=== PATIENT | female | born 1985 | race American Indian/Alaskan Native ===

== ENCOUNTER 2017-06-13 16:20 | Emergency (ER) | payer MEDICAID ==
[2017-06-13 16:52] LABS: Basophils % (Auto) 0.5 % (0.0-1.8); Eosinophils # (Auto) 0.1 K/mm3 (0.0-0.4); Eosinophils % (Auto) 0.8 % (0.0-4.3); Hematocrit 44.3 % (30.3-42.9); Hemoglobin 14.8 gm/dl (10.1-14.3); Lymphocytes # (Auto) 3.2 K/mm3 (1.2-5.4); Lymphocytes % (Auto) 44.2 % (13.4-35.0); Mean Corpuscular HGB Conc 33 % (30-34); Mean Corpuscular Hemoglobin 31 pg (28-32); Mean Corpuscular Volume 92 fl (79-97); Monocytes # (Auto) 0.7 K/mm3 (0.0-0.8); Monocytes % (Auto) 9.4 % (0.0-7.3); Platelet Count 299 K/mm3 (140-440); Red Blood Count 4.83 M/mm3 (3.65-5.03)
[2017-06-13] MEDS ORDERED: NACL 0.9% 1000 ML 1,000 ML IV ONE (16:56)
[2017-06-13] MEDS ORDERED: SUBLIMAZE IV ONE (16:58)
[2017-06-13] MEDS ORDERED: ZOFRAN IV ONE (16:58)
[2017-06-13 17:14] LABS: BUN/Creatinine Ratio 11; Blood Urea Nitrogen 8 mg/dL (7-17); Calcium 9.1 mg/dL (8.4-10.2); Hemolysis Index 9
[2017-06-13] MEDS ORDERED: NACL ONE (17:30)
--- NOTE | 2017-06-13 18:03 | Emergency Department Report ---
HPI - General Chief Complaint: Dyspnea/Respdistress Time Seen by Provider: 06/13/17 16:46 - HPI HPI: The patient is a 31-year-old female who presents for evaluation of chest pain, dyspnea, and left scapula pain. The patient reports left-sided chest pain and scapular pain for the past 2 hours, constant since onset, sharp in quality, 10/ 10 in severity, exacerbated with inspiration. The patient denies trauma to the back or chest, fever, syncope, hemoptysis, unilateral leg swelling, recent immobilization, history of DVT or PE, hx of recent cancer. ED Past Medical Hx - Past Medical History Hx Hypertension: Yes Hx Arthritis: Yes - Surgical History Past Surgical History?: No - Social History Smoking Status: Current Every Day Smoker Substance Use Type: None ED Review of Systems ROS: Stated complaint: back pain Other details as noted in HPI Constitutional: denies: fever ENT: denies: throat or neck pain Respiratory: reports shortness of breath Cardiovascular: reports chest pain Endocrine: denies unexplained weight loss or gain Gastrointestinal: denies: abdominal pain, nausea Genitourinary: denies: dysuria Musculoskeletal: denies: leg swelling Skin: denies: rash Neurological: pain denies: headache Hematological/Lymphatic: denies: easy bleeding or easy bruising Psych: denies sadness or hopelessness Physical Exam - Physical Exam Vital Signs: Vital Signs 06/13/17 06/13/17 06/13/17 16:24 16:25 16:26 Temperature Pulse Rate 94 H 93 H 95 H Respiratory 18 19 Rate Blood Pressure 149/45 O2 Sat by Pulse 99 Oximetry 06/13/17 06/13/17 06/13/17 16:27 16:29 16:31 Temperature Pulse Rate 92 H 80 86 Respiratory 14 12 26 H Rate Blood Pressure 149/45 149/45 120/73 O2 Sat by Pulse 100 100 79 L Oximetry 06/13/17 06/13/17 06/13/17 16:33 16:35 16:36 Temperature 98.1 F 97.3 F L Pulse Rate 78 89 Respiratory 17 17 Rate Blood Pressure 120/73 120/73 O2 Sat by Pulse 99 99 Oximetry 06/13/17 06/13/17 06/13/17 16:37 16:39 16:41 Temperature Pulse Rate 86 85 84 Respiratory 18 22 18 Rate Blood Pressure 120/73 120/73 120/73 O2 Sat by Pulse 100 100 100 Oximetry 06/13/17 06/13/17 06/13/17 16:43 16:45 16:47 Temperature Pulse Rate 71 64 88 Respiratory 15 15 17 Rate Blood Pressure 120/73 116/66 116/66 O2 Sat by Pulse 100 100 100 Oximetry 06/13/17 06/13/17 06/13/17 16:49 16:51 16:53 Temperature Pulse Rate 95 H 90 77 Respiratory 17 24 16 Rate Blood Pressure 116/66 116/66 116/66 O2 Sat by Pulse 100 100 99 Oximetry 06/13/17 06/13/17 06/13/17 16:55 16:57 16:59 Temperature Pulse Rate 95 H 81 86 Respiratory 18 12 13 Rate Blood Pressure 116/66 116/66 117/66 O2 Sat by Pulse 100 100 100 Oximetry 06/13/17 06/13/17 06/13/17 17:00 17:01 17:03 Temperature Pulse Rate 86 80 82 Respiratory 10 L 19 17 Rate Blood Pressure 117/66 117/66 117/66 O2 Sat by Pulse 100 100 100 Oximetry 06/13/17 06/13/17 06/13/17 17:05 17:07 17:09 Temperature Pulse Rate 85 86 80 Respiratory 9 L 14 13 Rate Blood Pressure 117/66 117/66 117/66 O2 Sat by Pulse 100 100 100 Oximetry 06/13/17 06/13/17 06/13/17 17:11 17:14 17:15 Temperature Pulse Rate 69 77 76 Respiratory 15 14 14 Rate Blood Pressure 117/66 117/66 117/64 O2 Sat by Pulse 100 100 100 Oximetry 06/13/17 17:18 Temperature Pulse Rate Respiratory 18 Rate Blood Pressure O2 Sat by Pulse 100 Oximetry Physical Exam: General: well-nourished, well-developed, no acute distress Head: Normocephalic, atraumatic Eyes: normal sclera ENT: Mucous membranes are pink and moist Neck: trachea midline, neck supple, No neck stiffness, no cervical adenopathy Respiratory: Breath sounds equal bilaterally, no wheezing, rales, or rhonchi Cardio: S1 and S2 present, no murmurs, rubs, gallops, capillary refill is brisk Abdomen: Normoactive bowel sounds, soft abdomen, no rigidity, no guarding or rebound tenderness Chest WALL/Back: No tenderness to palpation of the chest wall, no CVA tenderness with percussion Musc: No pitting edema Skin: No rash Neuro: no facial drooping, normal speech Psych: Normal affect ED Course Vital Signs 06/13/17 06/13/17 06/13/17 16:24 16:25 16:26 Temperature Pulse Rate 94 H 93 H 95 H Respiratory 18 19 Rate Blood Pressure 149/45 O2 Sat by Pulse 99 Oximetry 06/13/17 06/13/17 06/13/17 16:27 16:29 16:31 Temperature Pulse Rate 92 H 80 86 Respiratory 14 12 26 H Rate Blood Pressure 149/45 149/45 120/73 O2 Sat by Pulse 100 100 79 L Oximetry 06/13/17 06/13/17 06/13/17 16:33 16:35 16:36 Temperature 98.1 F 97.3 F L Pulse Rate 78 89 Respiratory 17 17 Rate Blood Pressure 120/73 120/73 O2 Sat by Pulse 99 99 Oximetry 06/13/17 06/13/17 06/13/17 16:37 16:39 16:41 Temperature Pulse Rate 86 85 84 Respiratory 18 22 18 Rate Blood Pressure 120/73 120/73 120/73 O2 Sat by Pulse 100 100 100 Oximetry 06/13/17 06/13/17 06/13/17 16:43 16:45 16:47 Temperature Pulse Rate 71 64 88 Respiratory 15 15 17 Rate Blood Pressure 120/73 116/66 116/66 O2 Sat by Pulse 100 100 100 Oximetry 06/13/17 06/13/17 06/13/17 16:49 16:51 16:53 Temperature Pulse Rate 95 H 90 77 Respiratory 17 24 16 Rate Blood Pressure 116/66 116/66 116/66 O2 Sat by Pulse 100 100 99 Oximetry 06/13/17 06/13/17 06/13/17 16:55 16:57 16:59 Temperature Pulse Rate 95 H 81 86 Respiratory 18 12 13 Rate Blood Pressure 116/66 116/66 117/66 O2 Sat by Pulse 100 100 100 Oximetry 06/13/17 06/13/17 06/13/17 17:00 17:01 17:03 Temperature Pulse Rate 86 80 82 Respiratory 10 L 19 17 Rate Blood Pressure 117/66 117/66 117/66 O2 Sat by Pulse 100 100 100 Oximetry 06/13/17 06/13/17 06/13/17 17:05 17:07 17:09 Temperature Pulse Rate 85 86 80 Respiratory 9 L 14 13 Rate Blood Pressure 117/66 117/66 117/66 O2 Sat by Pulse 100 100 100 Oximetry 06/13/17 06/13/17 06/13/17 17:11 17:14 17:15 Temperature Pulse Rate 69 77 76 Respiratory 15 14 14 Rate Blood Pressure 117/66 117/66 117/64 O2 Sat by Pulse 100 100 100 Oximetry 06/13/17 17:18 Temperature Pulse Rate Respiratory 18 Rate Blood Pressure O2 Sat by Pulse 100 Oximetry ED Medical Decision Making - Lab Data Result diagrams: 06/13/17 16:42 06/13/17 16:42 - Medical Decision Making The patient was seen and examined by myself. The patient is placed on a case monitor and continuous pulse ox. On initial evaluation, the patient was found to be in no distress. EKG was negative for findings suggestive of acute cardiac infarct. Labs and imaging are obtained. The patient is given pain medicine. Chest x-ray is negative for pneumothorax, focal consolidation, pulmonary vascular congestion, pleural effusion, or other obvious acute cardiopulmonary disease process. Lab results were non-concerning including levels of troponin, WBC, hemoglobin, hematocrit, electrolytes, renal function. The patient was reevaluated and reported that their symptoms were markedly improved. As the patient has a SO risk score less than 2, and received a CT angiogram of the chest negative for pulmonary embolism, the patient is at low risk of ACS or pulmonary emboli etiology of their symptoms. The patient is stable for discharge with outpatient follow-up. The patient is given follow-up and return instructions. The patient expressed understanding and agreed with the plan. The patient is discharged in stable condition. Critical care attestation.: If time is entered above; I have spent that time in minutes in the direct care of this critically ill patient, excluding procedure time. ED Disposition Clinical Impression: Acute chest pain, Dyspnea on effort Disposition: -01 TO HOME OR SELFCARE Is pt being admited?: No Does the pt Need Aspirin: No Condition: Stable Instructions: Chest Pain (ED) Referrals: PRIMARY CARE, [Primary Care Provider] - 3-5 Days Time of Disposition: 18:03
[2017-06-13] MEDS ORDERED: TORADOL IV ONE (18:31)
--- NOTE | 2017-06-13 18:52 | Cat Scan Report ---
FINAL REPORT PROCEDURE: CT ANGIO CHEST TECHNIQUE: Computerized tomographic angiography of the chest was performed after the IV injection of iodinated nonionic contrast including image processing. The image data was postprocessed using 2-dimensional multiplanar reformatted (MPR) and 3-dimensional (MIP and/or volume rendered) techniques. HISTORY: chest pain COMPARISON: No prior studies are available for comparison. FINDINGS: Aorta is of normal caliber without evidence of dissection. There is suboptimal opacification of pulmonary arterial tree without any obvious filling defects. Thyroid demonstrates normal density. Hilar structures are within normal limits. There is no lymphadenopathy. Cardiac size is within normal limits. Bilateral lungs are free of infiltrates or mass lesions. Pleural spaces are clear. Visualized upper abdominal structures are within normal limits. Vertebral height is normal. IMPRESSION: No acute abnormality.
[2017-06-13 19:20] VITALS: BP 128/69
--- NOTE | 2017-06-13 19:41 | XRay Report ---
FINAL REPORT PROCEDURE: XR CHEST ROUTINE 2V TECHNIQUE: PA and lateral chest radiographs were obtained. CPT 69853 HISTORY: Shortness of breath COMPARISON: No prior studies are available for comparison. FINDINGS: Heart: Normal. Mediastinum/Vessels: Normal. Lungs/Pleural space: Normal. Bony thorax: No acute osseous abnormality. Other: IMPRESSION: Normal examination.
== END 2017-06-13 19:21 | disposition home or self-care (01) ==
LOC: ED 16:20
DX: R07.9 Chest pain, unspecified (principal); R06.00 Dyspnea, unspecified; F17.200 Nicotine dependence, unspecified, uncomplicated
CPT/HCPCS: 36415; 71046; 71275; 80048; 83880; 84484; 84703; 85025; 93005; 93010; 96361; 96374; 96375; 99285; J1885; J2405; J3010; J7030; Q9967

== ENCOUNTER 2019-04-22 19:44 | Observation (INO) | payer MEDICAID ==
[2019-04-22 21:14] LABS: Basophils # (Auto) 0.1 K/mm3 (0.0-0.1); Basophils % (Auto) 0.7 % (0.0-1.8); Eosinophils % (Auto) 0.2 % (0.0-4.3); Hematocrit 39.9 % (30.3-42.9); Hemoglobin 13.1 gm/dl (10.1-14.3); Lymphocytes # (Auto) 1.9 K/mm3 (1.2-5.4); Lymphocytes % (Auto) 15.1 % (13.4-35.0); Mean Corpuscular HGB Conc 33 % (30-34); Mean Corpuscular Volume 90 fl (79-97); Monocytes # (Auto) 1.1 K/mm3 (0.0-0.8); Monocytes % (Auto) 8.6 % (0.0-7.3); Platelet Count 415 K/mm3 (140-440); Red Blood Count 4.42 M/mm3 (3.65-5.03); Red Cell Distribution Width 15.2 % (13.2-15.2)
[2019-04-22 21:23] LABS: Albumin 3.6 g/dL (3.9-5); Calcium 8.9 mg/dL (8.4-10.2)
[2019-04-22 21:26] LABS: Bilirubin,Urine NEG (Negative); Color,Urine Yellow (Yellow)
[2019-04-22 21:27] LABS: Bacteria,Urine 2+ /HPF (Negative); Blood,Urine NEG (Negative); Mucus,Urine FEW /HPF; Protein,Urine <15 mg/dL mg/dL (Negative); Urobilinogen,Urine < 2.0 mg/dL (<2.0)
[2019-04-22] MEDS ORDERED: SODIUM CHLORIDE 0.9% 1000 ML 1,000 ML IV ONE ×2 (22:21→22:23)
[2019-04-22] MEDS ORDERED: MORPHINE 4 MG/1 ML INJ IV ONE (22:36)
[2019-04-22] MEDS ORDERED: ONDANSETRON 4 MG/2 ML INJ IV ONE (22:36)
--- NOTE | 2019-04-23 | Cat Scan Report ---
CT ABDOMEN AND PELVIS WITHOUT IV CONTRAST INDICATION: llq pain/ stone search. COMPARISON: None available. TECHNIQUE: All CT scans at this facility use dose modulation, automated exposure control, iterative reconstructi on or weight based dosing, when appropriate, to reduce radiation dose to as low as reasonably achieva ble. FINDINGS: Lung Bases: No significant abnormality. Skeletal System: No acute abnormality. ABDOMEN: Liver: No significant abnormality. Gallbladder: No significant abnormality. Bile Ducts: No significant abnormality. Pancreas: No significant abnormality. Spleen: No significant abnormality. Adrenals: No significant abnormality. Right Kidney: No significant abnormality. Left Kidney: No significant abnormality. Upper GI tract: No significant abnormality. Lymph Nodes: No significant adenopathy. Aorta: No significant abnormality. Additional Findings: No significant abnormality. PELVIS: Colon: No acute abnormality. Urinary Bladder and Distal Ureters: No significant abnormality. Appendix: No significant abnormality. Lymph Nodes: No significant adenopathy. Additional Findings: Trace free fluid in the pelvis is likely physiologic. There is a 2.7 cm left ova ivelisse cyst which is likely physiologic. IMPRESSION: 1. Within the limitations of non contrast technique, no acute process in the abdomen or pelvis. 2. Incidental findings, as above. Signer Name: Tong Hopper MD Signed: 04/22/2019 11:56 PM Workstation Name: [id number]
--- NOTE | 2019-04-23 00:16 | Emergency Department Report ---
ED Abdominal Pain HPI - General Chief Complaint: Abdominal Pain Stated Complaint: STOMACH PAIN NAUSEA CONSTIPATION Time Seen by Provider: 04/22/19 21:10 Source: patient Mode of arrival: Ambulatory Limitations: No Limitations - History of Present Illness Initial Comments: patient presents with nausea, vomiting for the past 3 days. Feeling like passing out, weak and dizzy. has decrease appetite and constipation. has not taken any meds for symptoms. MD Complaint: abdominal pain -: Gradual Location: diffuse Radiation: none Migration to: no migration Severity scale (0 -10): 10 Quality: cramping Consistency: constant, intermittent Improves With: nothing Worsens With: nothing Associated Symptoms: chills, constipation - Related Data Allergies Allergy/AdvReac Type Severity Reaction Status Date / Time No Known Allergies Allergy Verified 04/22/19 19:46 ED Review of Systems ROS: Stated complaint: STOMACH PAIN NAUSEA CONSTIPATION Other details as noted in HPI Comment: All other systems reviewed and negative Gastrointestinal: abdominal pain, nausea, vomiting ED Past Medical Hx - Past Medical History Previous Medical History?: Yes Hx Hypertension: Yes Hx Arthritis: Yes - Surgical History Past Surgical History?: No - Social History Smoking Status: Current Every Day Smoker Substance Use Type: None ED Physical Exam - General Limitations: No Limitations General appearance: alert, in no apparent distress - Head Head exam: Present: atraumatic, normocephalic - Eye Eye exam: Present: normal appearance - ENT ENT exam: Present: normal exam, normal orophraynx - Neck Neck exam: Present: normal inspection - Respiratory Respiratory exam: Present: normal lung sounds bilaterally ED Course Vital Signs 04/22/19 04/22/19 19:46 22:48 Temperature 98.4 F Pulse Rate 102 H Respiratory 16 19 Rate Blood Pressure 117/84 O2 Sat by Pulse 99 Oximetry ED Medical Decision Making - Lab Data Result diagrams: 04/22/19 20:49 04/22/19 20:49 Critical care attestation.: If time is entered above; I have spent that time in minutes in the direct care of this critically ill patient, excluding procedure time. ED Disposition Clinical Impression: EVY (acute kidney injury), Severe dehydration Disposition: OP ADMIT IP TO THIS HOSP Is pt being admited?: Yes Does the pt Need Aspirin: No Condition: Stable Instructions: Abdominal Pain (ED) Referrals: PRIMARY CARE, [Primary Care Provider] - 3-5 Days
[2019-04-23] MEDS ORDERED: ACETAMINOPHEN 325 MG TAB PO PRN (00:49)
[2019-04-23] MEDS ORDERED: ONDANSETRON 4 MG/2 ML INJ IV PRN (00:49)
[2019-04-23] MEDS ORDERED: MAGNESIUM HYDROXIDE (MOM) ORAL LIQD UDC PO PRN (00:49)
--- NOTE | 2019-04-23 01:13 | XRay Report ---
CHEST 1 VIEW INDICATION: brigitte,left upper q pain. COMPARISON: 04/15/2017 FINDINGS: Support devices: None. Heart: Normal. Lungs/Pleura: No acute pulmonary or pleural findings. IMPRESSION: 1. No acute findings. Signer Name: Tong Hopper MD Signed: 04/23/2019 1:09 AM Workstation Name: [id number]
[2019-04-23] MEDS: SODIUM CHLORIDE 0.9% 1000 ML 1,000 ML IV SCH ×3 (01:16→23:00)
[2019-04-23 01:18] LABS: Benzodiazepines Screen,Urine PRESUMPTIVE NEGATIVE; Cocaine Screen,Urine PRESUMPTIVE NEGATIVE; Methadone Screen,Urine PRESUMPTIVE NEGATIVE; Opiate Screen,Urine PRESUMPTIVE NEGATIVE
[2019-04-23] MEDS ORDERED: SODIUM CHLORIDE 0.9% 1000 ML 1,000 ML ONE (01:34)
[2019-04-23 01:35] LABS: Amphetamine Screen,Urine PRESUMPTIVE POSITIVE; Cannabinoid Screen,Urine PRESUMPTIVE POSITIVE
--- NOTE | 2019-04-23 01:53 | History and Physical Report ---
History of Present Illness Date of examination: 04/23/19 Date of admission: 04/23/19 00:38 Chief complaint: Nausea and vomiting Constipation History of present illness: 33 year old female seen in the ER c/o nausea and vomiting for three days. She has had some constipation .She denies any fever, no chills, no abdominal pain, no dysuria or hematuria. She states she ate some chicken at a restaurant few days ago and subsequently started having nausea and vomiting. She denies any sick contacts, no recent travels. Evaluation in the ER including CT abdomen did not reveal any significant abnormalities. BUN/Creatinine was however elevated. Past History Past Medical History: hypertension Past Surgical History: No surgical history Social history: smoking (Smokes occasionally), alcohol abuse (Alcohol occasionally) Family history: cancer (Breast cancer runs in family) Medications and Allergies Allergies Allergy/AdvReac Type Severity Reaction Status Date / Time No Known Allergies Allergy Verified 04/22/19 19:46 Home Medications Medication Instructions Recorded Confirmed Last Taken Type No Known Home Medications [No 04/23/19 04/23/19 Unknown History Reported Home Medications] Active Meds: Active Medications Acetaminophen (Tylenol) 650 mg PO Q4H PRN PRN Reason: Pain MILD(1-3)/Fever >100.5/KEARNS Heparin Sodium (Porcine) (Heparin) 5,000 unit SUB-Q Q8HR JOSH Sodium Chloride (Nacl 0.9% 1000 Ml) 1,000 mls @ 125 mls/hr IV DIRECT JOSH Last Admin: 04/23/19 01:16 Dose: 125 mls/hr Documented by: Magnesium Hydroxide (Milk Of Magnesia) 30 ml PO Q4H PRN PRN Reason: Constipation Morphine Sulfate (Morphine) 2 mg IV Q4H PRN PRN Reason: Pain, Moderate (4-6) Ondansetron HCl (Zofran) 4 mg IV Q8H PRN PRN Reason: Nausea And Vomiting Sodium Chloride (Sodium Chloride Flush Syringe 10 Ml) 10 ml IV BID JOSH Sodium Chloride (Sodium Chloride Flush Syringe 10 Ml) 10 ml IV PRN PRN PRN Reason: LINE FLUSH Review of Systems Constitutional: no fever, no chills Cardiovascular: no chest pain, no palpitations Respiratory: no cough, no hemoptysis Gastrointestinal: abdominal pain, nausea, vomiting, constipation, loss of appetite Genitourinary Female: no dysuria, no hematuria Musculoskeletal: no neck pain, no low back pain Integumentary: no rash, no pruritis Exam - Constitutional Vitals: Temp Pulse Resp BP Pulse Ox 97.9 F 76 16 118/79 100 04/23/19 01:08 04/23/19 01:08 04/23/19 01:08 04/23/19 01:08 04/23/19 01:08 General appearance: Present: no acute distress, well-nourished - EENT Eyes: Present: PERRL, EOM intact ENT: hearing intact, clear oral mucosa, dentition normal - Neck Neck: Present: supple, normal ROM - Respiratory Respiratory effort: normal Respiratory: bilateral: CTA - Cardiovascular Rhythm: regular Heart Sounds: Present: S1 & S2 - Extremities Extremities: no ischemia, pulses intact, pulses symmetrical, No edema, Full ROM Peripheral Pulses: within normal limits - Abdominal General gastrointestinal: Present: soft, non-tender, non-distended, normal bowel sounds - Integumentary Integumentary: Present: clear, warm, dry, normal turgor - Musculoskeletal Musculoskeletal: strength equal bilaterally - Psychiatric Psychiatric: appropriate mood/affect, intact judgment & insight, cooperative - Neurologic Neurologic: CNII-XII intact, moves all extremities Results - Labs CBC & Chem 7: 04/22/19 20:49 04/22/19 20:49 Labs: Abnormal lab results 04/22/19 04/22/19 Range/Units 20:49 20:49 WBC 12.9 H (4.5-11.0) K/mm3 Mckinley % (Auto) 8.6 H (0.0-7.3) % Mckinley # 1.1 H (0.0-0.8) K/mm3 Seg Neutrophils % 75.4 H (40.0-70.0) % Seg Neutrophils # 9.7 H (1.8-7.7) K/mm3 Sodium 135 L (137-145) mmol/L BUN 18 H (7-17) mg/dL Creatinine 3.5 H (0.7-1.2) mg/dL Albumin 3.6 L (3.9-5) g/dL Assessment and Plan - Patient Problems (1) EVY (acute kidney injury) Current Visit: Yes Status: Acute Plan to address problem: Probably secondary to the nausea and vomiting. Started on IV fluid. Will monitor Bun/Creatinine. (2) Severe dehydration Current Visit: Yes Status: Acute Plan to address problem: Secondary to nausea and vomiting. Continue on hydration with IV fluid. (3) DVT prophylaxis Current Visit: Yes Status: Acute Plan to address problem: Placed on subcutaneous heparin. (4) Full code status Current Visit: Yes Status: Acute
[2019-04-23] MEDS: MORPHINE 2 MG/1 ML INJ IV PRN ×5 (02:04→22:46)
[2019-04-23] MEDS: HEPARIN 5,000 UNIT/1 ML VIAL SUB-Q SCH ×3 (06:14→22:46)
--- NOTE | 2019-04-23 09:18 | Consultation ---
History of Present Illness - History of Present Illness Thank you for the consultation Patient was evaluated today My assessment and plan are as follows Renal failure likely acute in a patient who is 33-year-old and has been admitted here with a creatinine of 3.5 potassium 4.3 and sodium 135, patient clinically appears to be volume depleted however we cannot rule out any possibility of underlying chronic kidney disease Patient needs to have basic labs as well as renal imaging as well as urine studies upon discharge she will need to make a follow-up appointment in the office I have given her my contact information Mild hyponatremia likely this is resulting from volume depletion to follow Low-grade metabolic acidosis bicarbonate currently around 22 requires aggressive hydration and follow-up Nausea and vomiting etiology unclear: May benefit from GI evaluation Renal prognosis remains guarded at this time Adequately counseled regarding all the related issues all questions have been answered We will continue to follow and make recommendation from renal standpoint Author: Luis F Britton M.D. [facility], [address] [place] [address] Tel; [phone] Source of information: From patient History of present illness 33-year-old female who has been admitted here with ongoing intermittent abdominal pain nausea and vomiting appetite has been very poor, patient says that she has been having issues with constipation, she has not taken any form of nonsteroidal drug, she was also feeling lightheaded upon standing, no prior history of any lupus hepatitis HIV or paraproteinemia as discussed with patient no history of any skin rash sore throat recently Events of this hospitalization were noted, CT kidneys unremarkable Past medical history: Current allergies: Reviewed from the current chart Social history: Reviewed from the current chart Family history: Reviewed from the current chart Review of system: Positive for generalized weakness dizziness and dry mouth nausea vomiting ongoing for 3-4 days All other review of systems negative Physical examination Vitals: Reviewed General: No acute distress HEENT: Oral mucosa dry no pallor or icterus Neck: Supple without any JVD thyromegaly or nodular mass Chest: Clear to auscultation Heart: Regular rate and rhythm S1-S2 heard no S3-S4 Abdomen: Soft nontender, bowel sounds present no renal bruit no suprapubic masses no CVA tenderness noted Extremity: Minimal edema dry skin no peripheral cyanosis Endocrine: Thyroid not enlarged Psychiatric: No agitation and aggression noted Musculoskeletal: No joint effusion noted Labs and x-rays: Reviewed from this admission Past History Past Medical History: hypertension Past Surgical History: No surgical history Social history: smoking (Smokes occasionally), alcohol abuse (Alcohol occasionally) Family history: cancer (Breast cancer runs in family) Medications and Allergies Allergies Allergy/AdvReac Type Severity Reaction Status Date / Time No Known Allergies Allergy Verified 04/22/19 19:46 Home Medications Medication Instructions Recorded Confirmed Last Taken Type No Known Home Medications [No 04/23/19 04/23/19 Unknown History Reported Home Medications] Active Meds: Active Medications Acetaminophen (Tylenol) 650 mg PO Q4H PRN PRN Reason: Pain MILD(1-3)/Fever >100.5/KEARNS Heparin Sodium (Porcine) (Heparin) 5,000 unit SUB-Q Q8HR JOSH Last Admin: 04/23/19 06:14 Dose: 5,000 unit Documented by: Sodium Chloride (Nacl 0.9% 1000 Ml) 1,000 mls @ 125 mls/hr IV DIRECT JOSH Last Admin: 04/23/19 01:16 Dose: 125 mls/hr Documented by: Magnesium Hydroxide (Milk Of Magnesia) 30 ml PO Q4H PRN PRN Reason: Constipation Morphine Sulfate (Morphine) 2 mg IV Q4H PRN PRN Reason: Pain, Moderate (4-6) Last Admin: 04/23/19 06:17 Dose: 2 mg Documented by: Ondansetron HCl (Zofran) 4 mg IV Q8H PRN PRN Reason: Nausea And Vomiting Last Admin: 04/23/19 06:17 Dose: 4 mg Documented by: Sodium Chloride (Sodium Chloride Flush Syringe 10 Ml) 10 ml IV BID JOSH Sodium Chloride (Sodium Chloride Flush Syringe 10 Ml) 10 ml IV PRN PRN PRN Reason: LINE FLUSH Exam - Vital Signs Vital signs: Vital Signs Temp Pulse Resp BP Pulse Ox 98.4 F 102 H 16 117/84 99 04/22/19 19:46 04/22/19 19:46 04/22/19 19:46 04/22/19 19:46 04/22/19 19:46 Results - Lab Results 04/23/19 09:03 04/23/19 09:03 Most recent lab results Calcium 8.9 mg/dL (8.4-10.2) 04/22/19 20:49
[2019-04-23 09:28] LABS: Basophils % (Auto) 0.4 % (0.0-1.8); Eosinophils # (Auto) 0.1 K/mm3 (0.0-0.4); Eosinophils % (Auto) 0.5 % (0.0-4.3); Hematocrit 37.3 % (30.3-42.9); Hemoglobin 12.3 gm/dl (10.1-14.3); Lymphocytes # (Auto) 2.1 K/mm3 (1.2-5.4); Lymphocytes % (Auto) 19.3 % (13.4-35.0); Mean Corpuscular HGB Conc 33 % (30-34); Mean Corpuscular Volume 89 fl (79-97); Monocytes # (Auto) 1.1 K/mm3 (0.0-0.8); Platelet Count 395 K/mm3 (140-440); Red Blood Count 4.19 M/mm3 (3.65-5.03); Red Cell Distribution Width 14.8 % (13.2-15.2)
[2019-04-23 09:53] LABS: Calcium 7.9 mg/dL (8.4-10.2)
[2019-04-23] MEDS: ONDANSETRON 4 MG/2 ML INJ IV PRN ×3 (11:00→22:46)
--- NOTE | 2019-04-23 11:30 | Progress Note ---
Assessment and Plan Assessment and plan: 33 year old female seen in the ER c/o nausea and vomiting for three days. She has had some constipation .She denies any fever, no chills, no abdominal pain, no dysuria or hematuria. She states she ate some chicken at a restaurant few days ago and subsequently started having nausea and vomiting. She denies any sick contacts, no recent travels. Evaluation in the ER including CT abdomen did not reveal any significant abnormalities. BUN/Creatinine was however elevate * Patient continues to have Epigastric abdominal pain, has not been able to tolerate PO intake and still no BM. * She initially denied use of Marijuana but when advised of UDS, said she took it from the sister after having abdominal pain, nausea and vomiting x 3 days and her sister said to try it and it will work. she states it calmed her nerves. she denies any fever * Increase IVF to 150cc an hr, creatinine still 3.1. She denies any past renal disease. She although reports hx of HTN * Give lactulose * LFTs are normal. * GI consulted. * Anticipate discharge in am. EVY Secondary to vasomotor nephropathy Gastroenteritis severe Abdominal pain- Epigastric-Etiology unknown Constipation Persistent Nausea and Vomiting Polysubstance abuse. Acute Metabolic Acidosis History Interval history: Patient seen and examined remains in pain with epigastric pain 7 out of 10 in intensity still nauseated but has not been calling the nurses to let them know. Hospitalist Physical - Physical exam Narrative exam: VITAL SIGNS: Reviewed. GENERAL: The patient appears normally developed, Vital signs as documented. HEAD: No signs of head trauma. EYES: Pupils are equal. Extraocular motions intact. EARS: Hearing grossly intact. MOUTH: Oropharynx is normal. NECK: No adenopathy, no JVD. CHEST: Chest with clear breath sounds bilaterally. No wheezes, rales, or rhonchi. CARDIAC: Regular rate and rhythm. S1 and S2, without murmurs, gallops, or rubs. VASCULAR: No Edema. Peripheral pulses normal and equal in all extremities. ABDOMEN: Soft, epigastric tender. And non distended. No rebound or gua rding, and no masses palpated. Bowel Sounds normal. MUSCULOSKELETAL: Good range of motion of all major joints. Extremities without clubbing, cyanosis or edema. NEUROLOGIC EXAM: Alert and oriented x 3 No focal sensory or strength deficits. Speech normal. Follows commands. PSYCHIATRIC: Mood normal. SKIN: Multiple tattoos. Detail exam as documented in skin assessment - Constitutional Vitals: Temp Pulse Resp BP Pulse Ox 98.2 F 76 18 116/68 100 04/23/19 04:38 04/23/19 01:57 04/23/19 06:17 04/23/19 04:38 04/23/19 01:57 General appearance: Present: no acute distress, well-nourished Results - Labs CBC & Chem 7: 04/23/19 09:03 04/23/19 09:03 Labs: Laboratory Last Values WBC 11.0 K/mm3 (4.5-11.0) 04/23/19 09:03 RBC 4.19 M/mm3 (3.65-5.03) 04/23/19 09:03 Hgb 12.3 gm/dl (10.1-14.3) 04/23/19 09:03 Hct 37.3 % (30.3-42.9) 04/23/19 09:03 MCV 89 fl (79-97) 04/23/19 09:03 MCH 29 pg (28-32) 04/23/19 09:03 MCHC 33 % (30-34) 04/23/19 09:03 RDW 14.8 % (13.2-15.2) 04/23/19 09:03 Plt Count 395 K/mm3 (140-440) 04/23/19 09:03 Lymph % (Auto) 19.3 % (13.4-35.0) 04/23/19 09:03 [place] % (Auto) 10.0 % (0.0-7.3) H 04/23/19 09:03 Eos % (Auto) 0.5 % (0.0-4.3) 04/23/19 09:03 Baso % (Auto) 0.4 % (0.0-1.8) 04/23/19 09:03 Lymph # 2.1 K/mm3 (1.2-5.4) 04/23/19 09:03 [place] # 1.1 K/mm3 (0.0-0.8) H 04/23/19 09:03 Eos # 0.1 K/mm3 (0.0-0.4) 04/23/19 09:03 Baso # 0.0 K/mm3 (0.0-0.1) 04/23/19 09:03 Seg Neutrophils % 69.8 % (40.0-70.0) 04/23/19 09:03 Seg Neutrophils # 7.7 K/mm3 (1.8-7.7) 04/23/19 09:03 Sodium 138 mmol/L (137-145) 04/23/19 09:03 Potassium 4.0 mmol/L (3.6-5.0) 04/23/19 09:03 Chloride 107.9 mmol/L (98-107) H 04/23/19 09:03 Carbon Dioxide 18 mmol/L (22-30) L 04/23/19 09:03 Anion Gap 16 mmol/L 04/23/19 09:03 BUN 17 mg/dL (7-17) 04/23/19 09:03 Creatinine 3.1 mg/dL (0.7-1.2) H 04/23/19 09:03 Estimated GFR 21 ml/min 04/23/19 09:03 BUN/Creatinine Ratio 5 % 04/23/19 09:03 Glucose 112 mg/dL (65-100) H 04/23/19 09:03 Calcium 7.9 mg/dL (8.4-10.2) L 04/23/19 09:03 Total Bilirubin 0.30 mg/dL (0.1-1.2) 04/22/19 20:49 AST 16 units/L (5-40) 04/22/19 20:49 ALT 8 units/L (7-56) 04/22/19 20:49 Alkaline Phosphatase 61 units/L (35-129) 04/22/19 20:49 Total Protein 6.5 g/dL (6.3-8.2) 04/22/19 20:49 Albumin 3.6 g/dL (3.9-5) L 04/22/19 20:49 Albumin/Globulin Ratio 1.2 % 04/22/19 20:49 Lipase 55 units/L (13-60) 04/22/19 20:49 HCG, Qual Negative (Negative) 04/22/19 20:49 Urine Color Yellow (Yellow) 04/22/19 20:52 Urine Turbidity Clear (Clear) 04/22/19 20:52 Urine pH 5.0 (5.0-7.0) 04/22/19 20:52 Ur Specific [place] 1.011 (1.003-1.030) 04/22/19 20:52 Urine Protein <15 mg/dl mg/dL (Negative) 04/22/19 20:52 Urine Glucose (UA) Neg mg/dL (Negative) 04/22/19 20:52 Urine Ketones Neg mg/dL (Negative) 04/22/19 20:52 Urine Blood Neg (Negative) 04/22/19 20:52 Urine Nitrite Neg (Negative) 04/22/19 20:52 Urine Bilirubin Neg (Negative) 04/22/19 20:52 Urine Urobilinogen < 2.0 mg/dL (<2.0) 04/22/19 20:52 Ur Leukocyte Esterase Neg (Negative) 04/22/19 20:52 Urine WBC (Auto) 1.0 /HPF (0.0-6.0) 04/22/19 20:52 Urine RBC (Auto) 2.0 /HPF (0.0-6.0) 04/22/19 20:52 U Epithel Cells (Auto) 3.0 /HPF (0-13.0) 04/22/19 20:52 Urine Bacteria (Auto) 2+ /HPF (Negative) 04/22/19 20:52 Urine Mucus Few /HPF 04/22/19 20:52 Urine Opiates Screen Presumptive negative 04/23/19 01:02 Urine Methadone Screen Presumptive negative 04/23/19 01:02 Ur Barbiturates Screen Presumptive negative 04/23/19 01:02 Ur Phencyclidine Scrn Presumptive negative 04/23/19 01:02 Ur Amphetamines Screen Presumptive positive 04/23/19 01:02 U Benzodiazepines Scrn Presumptive negative 04/23/19 01:02 Urine Cocaine Screen Presumptive negative 04/23/19 01:02 U Marijuana (THC) Screen Presumptive positive 04/23/19 01:02 Drugs of Abuse Note Disclamer 04/23/19 01:02 Plasma/Serum Alcohol < 0.01 % (0-0.07) 04/23/19 00:59 Active Medications - Current Medications Current Medications: Generic Name Dose Route Start Last Admin Trade Name Freq PRN Reason Stop Dose Admin Acetaminophen 650 mg 04/23/19 00:49 Tylenol PO Q4H PRN Pain MILD(1-3)/Fever >100.5/KEARNS Heparin Sodium (Porcine) 5,000 unit 04/23/19 06:00 04/23/19 06:14 Heparin SUB-Q 5,000 unit Q8HR JOSH Administration Sodium Chloride 1,000 mls @ 150 mls/hr 04/23/19 01:00 04/23/19 01:16 Nacl 0.9% 1000 Ml IV 125 mls/hr DIRECT JOSH Administration Magnesium Hydroxide 30 ml 04/23/19 00:49 Milk Of Magnesia PO Q4H PRN Constipation Morphine Sulfate 2 mg 04/23/19 00:49 04/23/19 10:57 Morphine IV 2 mg Q4H PRN Administration Pain, Moderate (4-6) Ondansetron HCl 4 mg 04/23/19 09:22 04/23/19 11:00 Zofran IV 4 mg Q4H PRN Administration Nausea And Vomiting Sodium Chloride 10 ml 04/23/19 10:00 04/23/19 10:08 Sodium Chloride Flush Syringe 10 Ml IV Not Given BID JOSH Sodium Chloride 10 ml 04/23/19 00:49 Sodium Chloride Flush Syringe 10 Ml IV PRN PRN LINE FLUSH
--- NOTE | 2019-04-23 14:46 | Consultation ---
REFERRING PHYSICIAN: Dr. Jean Lopez. INDICATION: Nausea, vomiting. HISTORY OF PRESENT ILLNESS: The patient is a 33-year-old black female presents with nausea, vomiting. The patient reports after having a meal at a restaurant she started having nausea, vomiting and has been doing so for the last 3 days. She reports no hematemesis. She reports no bright red blood per rectum. She reports she has never had symptoms like this before. The patient notes some epigastric pain. She denies any weight loss. Denies any other specific complaints. PAST MEDICAL HISTORY: Hypertension. MEDICATIONS: Reviewed and updated in chart. ALLERGIES: No known drug allergies. SOCIAL HISTORY: Denies alcohol, tobacco or drug abuse. FAMILY HISTORY: Negative for colon cancer, IBD, or liver disease. REVIEW OF SYSTEMS: GENERAL: Reports some mild weakness. HEENT: No visual complaints or tinnitus. PULMONARY: No shortness of breath, chest pain. GASTROINTESTINAL: Reports some abdominal pain. All points of 13-point review of systems otherwise negative. PHYSICAL EXAMINATION: VITAL SIGNS: Temperature of 98.2, pulse 88, respirations 18, blood pressure 116/68. GENERAL: Fairly nourished female in no acute distress. HEENT: Pupils equal, round and reactive. PULMONARY: Clear to auscultation bilaterally. CARDIOVASCULAR: Regular rhythm. Normal S1, S2. ABDOMEN: Positive bowel sounds, soft. SKIN: No obvious rashes. LABORATORY DATA: Pertinent for white count of 11, hemoglobin and hematocrit of 12.3 and 37.3, platelet count of 395. Chem-7 pertinent for sodium of 138, potassium 4, chloride 108, CO2 18, BUN and creatinine of 31 and 2.1. LFTs within normal limits. Urine tox positive for marijuana. RADIOLOGY: CT scan of abdomen and pelvis with contrast on 04/22/2019 showed no significant pathology. ASSESSMENT AND PLAN: A 33-year-old black female presents with acute 3 days of nausea, vomiting after a meal with a CT scan being benign and labs fairly stable and urine tox positive for marijuana. Most likely gastroenteritis. The patient does report still having some epigastric pain and so we will proceed with conservative approach. PLAN: 1. Reviewed CT scan. 2. Clear liquid diet, advance as tolerated. 3. PPI daily. 4. Tolerating p.o. in a.m., okay to discharge. Follow up as an outpatient. 5. If epigastric pain and symptoms worsen, we will consider EGD. 6. We will follow. JOB# [id number] MANUEL/NTS
[2019-04-23] MEDS: LACTULOSE 20 GM/30 ML ORAL LIQD PO SCH ×2 (17:34→17:46)
[2019-04-23] MEDS ORDERED: LACTULOSE 20 GM/30 ML ORAL LIQD PO ONE (23:58)
[2019-04-24 04:19] LABS: Creatinine,Urine 45.1 mg/dL (0.1-20.0)
[2019-04-24] MEDS: HEPARIN 5,000 UNIT/1 ML VIAL SUB-Q SCH ×3 (05:57→22:20)
--- NOTE | 2019-04-24 07:44 | Progress Note ---
Subjective Interval history: Patient was seen today for follow-up of multiple renal related issues admitted with nausea vomiting Still feeling very dry in her mouth Interdisciplinary notes that also reviewed Events of 24 hours vitals labs intake output medications were reviewed Past medical history: Reviewed Family history: Reviewed Social history: Reviewed Allergies: Reviewed Physical examination: Vitals: Reviewed HEENT: No pallor or icterus oral mucosa moist Neck: Supple no JVD no thyromegaly Chest: Bilateral clear to auscultation anteriorly Heart: Regular rate and rhythm S1-S2 heard no S3-S4 Abdomen: Soft nontender no voluntary guarding rigidity rebound Extremity: Dry skin less than 1+ peripheral edema Psychiatric: No evidence of agitation and aggression noted Dermatology: No petechial rashes Labs and x-rays: Reviewed from today Assessment and plan Acute renal failure: Patient's labs currently pending she is in need for aggr essive hydration, discussed with hospital medicine service Follow up on the labs no emergent indication for renal replacement therapy mostly appeared to be volume depleted follow-up pendingUltrasound Adequately counseled and educated regarding renal related issues She will need a follow-up appointment in the office upon discharge All questions were answered and simple [place] We'll continue to follow and make recommendation for renal standpoint Objective - Vital Signs Vital signs: Vital Signs - 12hr 04/23/19 04/23/19 04/23/19 22:00 22:46 23:16 Temperature Pulse Rate Respiratory 18 18 18 Rate Respiratory 18 Rate [Abdomen] Blood Pressure O2 Sat by Pulse Oximetry 04/24/19 04/24/19 00:14 04:21 Temperature 98.2 F 98.2 F Pulse Rate 55 L 63 Respiratory 18 20 Rate Respiratory Rate [Abdomen] Blood Pressure 109/59 123/79 O2 Sat by Pulse 100 100 Oximetry - Lab 04/24/19 07:27 04/24/19 07:27 Most recent lab results Calcium 7.9 mg/dL (8.4-10.2) L 04/23/19 09:03 Urine Creatinine 45.1 mg/dL (0.1-20.0) H 04/23/19 Unknown Urine Sodium 94 mmol/L 04/23/19 Unknown Urine Total Protein 5 mg/dL (5-11.8) 04/23/19 Unknown Medications & Allergies - Medications Allergies/Adverse Reactions: Allergies No Known Allergies Allergy (Verified 04/22/19 19:46) Home Medications: Home Medications Medication Instructions Recorded Confirmed Last Taken Type No Known Home Medications [No 04/23/19 04/23/19 Unknown History Reported Home Medications] Active Medications: Generic Name Dose Route Start Last Admin Trade Name Loli PRN Reason Stop Dose Admin Acetaminophen 650 mg 04/23/19 00:49 Tylenol PO Q4H PRN Pain MILD(1-3)/Fever >100.5/KEARNS Heparin Sodium (Porcine) 5,000 unit 04/23/19 06:00 04/24/19 05:57 Heparin SUB-Q 5,000 unit Q8HR JOSH Administration Sodium Chloride 1,000 mls @ 150 mls/hr 04/23/19 01:00 04/23/19 23:00 Nacl 0.9% 1000 Ml IV 125 mls/hr DIRECT JOSH Administration Magnesium Hydroxide 30 ml 04/23/19 00:49 Milk Of Magnesia PO Q4H PRN Constipation Morphine Sulfate 2 mg 04/23/19 00:49 04/23/19 22:46 Morphine IV 2 mg Q4H PRN Administration Pain, Moderate (4-6) Ondansetron HCl 4 mg 04/23/19 09:22 04/23/19 22:46 Zofran IV 4 mg Q4H PRN Administration Nausea And Vomiting Sodium Chloride 10 ml 04/23/19 10:00 04/23/19 22:47 Sodium Chloride Flush Syringe 10 Ml IV 10 ml BID JOSH Administration Sodium Chloride 10 ml 04/23/19 00:49 Sodium Chloride Flush Syringe 10 Ml IV PRN PRN LINE FLUSH
[2019-04-24 08:15] LABS: Basophils % (Auto) 0.2 % (0.0-1.8); Eosinophils % (Auto) 0.2 % (0.0-4.3); Hematocrit 41.2 % (30.3-42.9); Hemoglobin 13.6 gm/dl (10.1-14.3); Lymphocytes # (Auto) 1.4 K/mm3 (1.2-5.4); Lymphocytes % (Auto) 14.2 % (13.4-35.0); Mean Corpuscular HGB Conc 33 % (30-34); Mean Corpuscular Volume 90 fl (79-97); Monocytes # (Auto) 0.8 K/mm3 (0.0-0.8); Platelet Count 417 K/mm3 (140-440)
[2019-04-24 08:29] LABS: Calcium 8.9 mg/dL (8.4-10.2)
[2019-04-24 08:40] LABS: INR 0.97 (0.87-1.13)
[2019-04-24 08:41] LABS: Partial Thromboplastin Time 38.3 Sec. (24.2-36.6)
[2019-04-24] MEDS ORDERED: SODIUM CHLORIDE 0.9% 1000 ML 1,000 ML IV SCH (10:30)
[2019-04-24] MEDS: ONDANSETRON 4 MG/2 ML INJ IV PRN ×2 (10:41→15:44)
--- NOTE | 2019-04-24 10:41 | Progress Note ---
Assessment and Plan Assessment and plan: 33 year old female seen in the ER c/o nausea and vomiting for three days. She has had some constipation .She denies any fever, no chills, no abdominal pain, no dysuria or hematuria. She states she ate some chicken at a restaurant few days ago and subsequently started having nausea and vomiting. She denies any sick contacts, no recent travels. Evaluation in the ER including CT abdomen did not reveal any significant abnormalities. BUN/Creatinine was however elevate * Patient continues to have Epigastric abdominal pain, has not been able to tolerate PO intake and still no BM. * She initially denied use of Marijuana but when advised of UDS, said she took it from the sister after having abdominal pain, nausea and vomiting x 3 days and her sister said to try it and it will work. she states it calmed her nerves. she denies any fever * Increase IVF to 150cc an hr, creatinine still 3.1. She denies any past renal disease. She although reports hx of HTN * Give lactulose * LFTs are normal. * GI consulted. 04/24: IV fluids adjusted yesterday creatinine only came down to 2.8 discussed wi th employee's representative recommended given a bolus of fluid and increasing to 200 cc an hour as patient is significantly dehydrated. Patient did have one episode of bowel movement yesterday. Awaiting GI evaluation and anticipate discharge in a.m. EVY Secondary to vasomotor nephropathy Gastroenteritis severe Dehydration Abdominal pain- Epigastric-Etiology unknown Constipation Persistent Nausea and Vomiting Polysubstance abuse. Acute Metabolic Acidosis History Interval history: Patient seen and examined remains in pain with epigastric pain 6 out of 10 in intensity still nauseated but keeping clear liquids down. Hospitalist Physical - Physical exam Narrative exam: VITAL SIGNS: Reviewed. GENERAL: The patient appears normally developed, Vital signs as documented. HEAD: No signs of head trauma. EYES: Pupils are equal. Extraocular motions intact. EARS: Hearing grossly intact. MOUTH: Oropharynx is normal. NECK: No adenopathy, no JVD. CHEST: Chest with clear breath sounds bilaterally. No wheezes, rales, or rhonchi. CARDIAC: Regular rate and rhythm. S1 and S2, without murmurs, gallops, or rubs. VASCULAR: No Edema. Peripheral pulses normal and equal in all extremities. ABDOMEN: Soft, epigastric tender. And non distended. No rebound or guarding, and no masses palpated. Bowel Sounds normal. MUSCULOSKELETAL: Good range of motion of all major joints. Extremities without clubbing, cyanosis or edema. NEUROLOGIC EXAM: Alert and oriented x 3 No focal sensory or strength deficits. Speech normal. Follows commands. PSYCHIATRIC: Mood normal. SKIN: Multiple tattoos. Detail exam as documented in skin assessment - Constitutional Vitals: Temp Pulse Resp BP Pulse Ox 98.2 F 63 20 123/79 100 04/24/19 04:21 04/24/19 04:21 04/24/19 04:21 04/24/19 04:21 04/24/19 04:21 General appearance: Present: no acute distress, well-nourished Results - Labs CBC & Chem 7: 04/24/19 07:27 04/24/19 07:27 Labs: Laboratory Last Values WBC 9.6 K/mm3 (4.5-11.0) 04/24/19 07:27 RBC 4.60 M/mm3 (3.65-5.03) 04/24/19 07:27 Hgb 13.6 gm/dl (10.1-14.3) 04/24/19 07:27 Hct 41.2 % (30.3-42.9) 04/24/19 07:27 MCV 90 fl (79-97) 04/24/19 07:27 MCH 30 pg (28-32) 04/24/19 07:27 MCHC 33 % (30-34) 04/24/19 07:27 RDW 15.0 % (13.2-15.2) 04/24/19 07:27 Plt Count 417 K/mm3 (140-440) 04/24/19 07:27 Lymph % (Auto) 14.2 % (13.4-35.0) 04/24/19 07:27 [place] % (Auto) 8.0 % (0.0-7.3) H 04/24/19 07:27 Eos % (Auto) 0.2 % (0.0-4.3) 04/24/19 07:27 Baso % (Auto) 0.2 % (0.0-1.8) 04/24/19 07:27 Lymph # 1.4 K/mm3 (1.2-5.4) 04/24/19 07:27 [place] # 0.8 K/mm3 (0.0-0.8) 04/24/19 07:27 Eos # 0.0 K/mm3 (0.0-0.4) 04/24/19 07:27 Baso # 0.0 K/mm3 (0.0-0.1) 04/24/19 07:27 Seg Neutrophils % 77.4 % (40.0-70.0) H 04/24/19 07:27 Seg Neutrophils # 7.4 K/mm3 (1.8-7.7) 04/24/19 07:27 PT 13.0 Sec. (12.2-14.9) 04/24/19 07:27 INR 0.97 (0.87-1.13) 04/24/19 07:27 APTT 38.3 Sec. (24.2-36.6) H 04/24/19 07:27 Sodium 139 mmol/L (137-145) 04/24/19 07:27 Potassium 4.1 mmol/L (3.6-5.0) 04/24/19 07:27 Chloride 105.4 mmol/L (98-107) 04/24/19 07:27 Carbon Dioxide 20 mmol/L (22-30) L 04/24/19 07:27 Anion Gap 18 mmol/L 04/24/19 07:27 BUN 11 mg/dL (7-17) 04/24/19 07:27 Creatinine 2.8 mg/dL (0.7-1.2) H 04/24/19 07:27 Estimated GFR 23 ml/min 04/24/19 07:27 BUN/Creatinine Ratio 4 % 04/24/19 07:27 Glucose 104 mg/dL (65-100) H 04/24/19 07:27 Osmolality 281 Mosm/kg 04/23/19 13:30 Uric Acid 6.2 mg/dL (3.5-7.6) 04/23/19 13:30 Calcium 8.9 mg/dL (8.4-10.2) 04/24/19 07:27 Total Bilirubin 0.30 mg/dL (0.1-1.2) 04/22/19 20:49 AST 16 units/L (5-40) 04/22/19 20:49 ALT 8 units/L (7-56) 04/22/19 20:49 Alkaline Phosphatase 61 units/L (35-129) 04/22/19 20:49 Total Protein 6.5 g/dL (6.3-8.2) 04/22/19 20:49 Albumin 3.6 g/dL (3.9-5) L 04/22/19 20:49 Albumin/Globulin Ratio 1.2 % 04/22/19 20:49 Lipase 55 units/L (13-60) 04/22/19 20:49 HCG, Qual Negative (Negative) 04/22/19 20:49 Urine Color Yellow (Yellow) 04/22/19 20:52 Urine Turbidity Clear (Clear) 04/22/19 20:52 Urine pH 5.0 (5.0-7.0) 04/22/19 20:52 Ur Specific [place] 1.011 (1.003-1.030) 04/22/19 20:52 Urine Protein <15 mg/dl mg/dL (Negative) 04/22/19 20:52 Urine Glucose (UA) Neg mg/dL (Negative) 04/22/19 20:52 Urine Ketones Neg mg/dL (Negative) 04/22/19 20:52 Urine Blood Neg (Negative) 04/22/19 20:52 Urine Nitrite Neg (Negative) 04/22/19 20:52 Urine Bilirubin Neg (Negative) 04/22/19 20:52 Urine Urobilinogen < 2.0 mg/dL (<2.0) 04/22/19 20:52 Ur Leukocyte Esterase Neg (Negative) 04/22/19 20:52 Urine WBC (Auto) 1.0 /HPF (0.0-6.0) 04/22/19 20:52 Urine RBC (Auto) 2.0 /HPF (0.0-6.0) 04/22/19 20:52 U Epithel Cells (Auto) 3.0 /HPF (0-13.0) 04/22/19 20:52 Urine Bacteria (Auto) 2+ /HPF (Negative) 04/22/19 20:52 Urine Mucus Few /HPF 04/22/19 20:52 Urine Creatinine 45.1 mg/dL (0.1-20.0) H 04/23/19 Unknown Urine Sodium 94 mmol/L 04/23/19 Unknown Urine Total Protein 5 mg/dL (5-11.8) 04/23/19 Unknown Urine Opiates Screen Presumptive negative 04/23/19 01:02 Urine Methadone Screen Presumptive negative 04/23/19 01:02 Ur Barbiturates Screen Presumptive negative 04/23/19 01:02 Ur Phencyclidine Scrn Presumptive negative 04/23/19 01:02 Ur Amphetamines Screen Presumptive positive 04/23/19 01:02 U Benzodiazepines Scrn Presumptive negative 04/23/19 01:02 Urine Cocaine Screen Presumptive negative 04/23/19 01:02 U Marijuana (THC) Screen Presumptive positive 04/23/19 01:02 Drugs of Abuse Note Disclamer 04/23/19 01:02 Plasma/Serum Alcohol < 0.01 % (0-0.07) 04/23/19 00:59 Active Medications - Current Medications Current Medications: Generic Name Dose Route Start Last Admin Trade Name Freq PRN Reason Stop Dose Admin Acetaminophen 650 mg 04/23/19 00:49 Tylenol PO Q4H PRN Pain MILD(1-3)/Fever >100.5/KEARNS Heparin Sodium (Porcine) 5,000 unit 04/23/19 06:00 04/24/19 05:57 Heparin SUB-Q 5,000 unit Q8HR JOSH Administration Sodium Chloride 1,000 mls @ 200 mls/hr 04/23/19 01:00 04/23/19 23:00 Nacl 0.9% 1000 Ml IV 125 mls/hr DIRECT JOSH Administration Sodium Chloride 1,000 mls @ 0 mls/hr 04/24/19 10:30 Nacl 0.9% 1000 Ml IV 04/25/19 10:31 ONCE JOSH As Directed Magnesium Hydroxide 30 ml 04/23/19 00:49 Milk Of Magnesia PO Q4H PRN Constipation Morphine Sulfate 2 mg 04/23/19 00:49 04/23/19 22:46 Morphine IV 2 mg Q4H PRN Administration Pain, Moderate (4-6) Ondansetron HCl 4 mg 04/23/19 09:22 04/23/19 22:46 Zofran IV 4 mg Q4H PRN Administration Nausea And Vomiting Sodium Chloride 10 ml 04/23/19 10:00 04/23/19 22:47 Sodium Chloride Flush Syringe 10 Ml IV 10 ml BID JOSH Administration Sodium Chloride 10 ml 04/23/19 00:49 Sodium Chloride Flush Syringe 10 Ml IV PRN PRN LINE FLUSH
[2019-04-24] MEDS: SODIUM CHLORIDE 0.9% 1000 ML 1,000 ML IV SCH ×3 (10:42→22:20)
--- NOTE | 2019-04-24 12:42 | Gastroenterology Progress Note ---
Assessment and Plan Patient still with severe abdominal pain nausea vomiting despite supportive measures. Therefore we will tentatively plan for EGD tomorrow for further evaluation to rule out acute peptic ulcer disease as her symptoms are persisting and not improving as would have been expected if this was merely acute gastroenteritis such as from food poisoning - Patient Problems (1) Epigastric abdominal pain Current Visit: Yes Status: Acute (2) Nausea & vomiting Current Visit: Yes Status: Acute Subjective Date of service: 04/24/19 Principal diagnosis: abd pain, N/V Interval history: Patient reports still with severe abdominal pain, 10 out of 10, cramping, constant, worse with palpation better with nothing not even morphine. No radiation, associated with nausea and vomiting Not improving with current meds Objective - Constitutional Vitals: Temp Pulse Resp BP Pulse Ox 98.2 F 63 20 123/79 100 04/24/19 04:21 04/24/19 04:21 04/24/19 04:21 04/24/19 04:21 04/24/19 04:21 General appearance: other (Patient uncomfortable) - EENT ENT: hearing intact - Neck Neck: supple - Respiratory Respiratory effort: normal - Cardiovascular Rhythm: regular - Gastrointestinal General gastrointestinal: Present: soft, tender - Integumentary Integumentary: Present: warm, dry - Neurologic Neurological: alert and oriented x3 - Psychiatric Psychiatric: appropriate mood/affect - Labs CBC & Chem 7: 04/24/19 07:27 04/24/19 07:27 Labs: Laboratory Results - last 24 hr 04/23/19 04/23/19 04/23/19 13:30 13:30 Unknown WBC RBC Hgb Hct MCV MCH MCHC RDW Plt Count Lymph % (Auto) [place] % (Auto) Eos % (Auto) Baso % (Auto) Lymph # [place] # Eos # Baso # Seg Neutrophils % Seg Neutrophils # PT INR APTT Sodium Potassium Chloride Carbon Dioxide Anion Gap BUN Creatinine Estimated GFR BUN/Creatinine Ratio Glucose Osmolality 281 Uric Acid 6.2 Calcium Urine Creatinine 45.1 H Urine Sodium 94 Urine Total Protein 5 04/24/19 04/24/19 04/24/19 07:27 07:27 07:27 WBC 9.6 RBC 4.60 Hgb 13.6 Hct 41.2 MCV 90 MCH 30 MCHC 33 RDW 15.0 Plt Count 417 Lymph % (Auto) 14.2 [place] % (Auto) 8.0 H Eos % (Auto) 0.2 Baso % (Auto) 0.2 Lymph # 1.4 [place] # 0.8 Eos # 0.0 Baso # 0.0 Seg Neutrophils % 77.4 H Seg Neutrophils # 7.4 PT 13.0 INR 0.97 APTT 38.3 H Sodium 139 Potassium 4.1 Chloride 105.4 Carbon Dioxide 20 L Anion Gap 18 BUN 11 Creatinine 2.8 H Estimated GFR 23 BUN/Creatinine Ratio 4 Glucose 104 H Osmolality Uric Acid Calcium 8.9 Urine Creatinine Urine Sodium Urine Total Protein
[2019-04-24] MEDS ORDERED: HYDROmorphone 1 MG/1 ML INJ IV ONE (13:00)
--- NOTE | 2019-04-24 13:25 | Ultrasound Report ---
ULTRASOUND RENAL INDICATION: renal failure COMPARISON: No relevant prior imaging study available. FINDINGS: RIGHT KIDNEY: Size: 11.1 cm. Echogenicity: Normal. Cortical thickness: Mild areas of focal thinning. Stones: None. Hydronephrosis: None. Cyst or mass: None. LEFT KIDNEY: Size: 13.5 cm. Echogenicity: Normal. Cortical thickness: Normal. Stones: None. Hydronephrosis: None. Cyst or mass: None. Urinary Bladder: No significant abnormality. Free Fluid: None. Additional Findings: None. IMPRESSION: No acute sonographic abnormality of the kidneys Signer Name: Ramon Monroe MD Signed: 04/24/2019 1:21 PM Workstation Name: [id number]
[2019-04-25] MEDS: HEPARIN 5,000 UNIT/1 ML VIAL SUB-Q SCH ×2 (05:21→13:53)
[2019-04-25 09:09] LABS: Calcium 8.9 mg/dL (8.4-10.2)
--- NOTE | 2019-04-25 09:44 | Anesthesia Consultation ---
<BEBETO FRANCE - Last Filed: 04/25/19 09:46> Anesthesia Consult and Med Hx Date of service: 04/25/19 - Pulmonary Exam CTA: Yes - Cardiac Exam Cardiac Exam: RRR - Pre-Operative Health Status ASA Pre-Surgery Classification: ASA2 Proposed Anesthetic Plan: General, MAC - Pulmonary Hx Smoking: Yes (occasional) Hx Asthma: No COPD: No Hx Pneumonia: No - Cardiovascular System Hx Hypertension: Yes Hx Coronary Artery Disease: No - Central Nervous System Hx Neuromuscular Disorder: No - Gastrointestinal Hx Ulcer: No (severe abd. pain, Nausea, vomiting, and constipation) - Endocrine Hx End Stage Renal Disease: No (recent inc BUN / Cr with present illness) - Other Systems Hx Alcohol Use: Yes (occasional) Hx Cancer: No <NIKIA THAO - Last Filed: 04/25/19 10:43> Anesthesia Consult and Med Hx - Airway Anesthetic Teeth Evaluation: Good ROM Head & Neck: Adequate Mental/Hyoid Distance: Adequate Mallampati Class: Class III Intubation Access Assessment: Possibly Difficult - Additional Comments Anesthesia Medical History Comments: No hx anesthetic complications. No vomiting today.
--- NOTE | 2019-04-25 10:04 | Progress Note ---
Assessment and Plan Assessment: * Nonoliguric EVY secondary to prerenal azotemia due to volume depletion --SCr 0.8mg/dL in May 2017 * Nausea/vomiting * Metabolic acidosis Plan: * Renal function improving w/ conservative management. No indication for renal replacement therapy at this time * Continue IVF at current rate * UOP not documented - discussed w/ patient's RN * Strict I/O ordered * AM labs Subjective Date of service: 04/25/19 Principal diagnosis: abd pain, N/V Interval history: Patient is off the floor at time of visit. Chart reviewed including RN/Provider notes, vitals, labs and medications Objective - Exam Narrative Exam: Deferred - off the floor at time of visit. - Vital Signs Vital signs: Vital Signs - 12hr 04/24/19 04/25/19 23:51 06:04 Temperature 98.9 F 97.9 F Pulse Rate 85 51 L Respiratory 16 16 Rate Blood Pressure 129/65 108/55 O2 Sat by Pulse 100 98 Oximetry - Lab 04/24/19 07:27 04/25/19 08:08 Most recent lab results Calcium 8.9 mg/dL (8.4-10.2) 04/25/19 08:08 Urine Creatinine 45.1 mg/dL (0.1-20.0) H 04/23/19 Unknown Urine Sodium 94 mmol/L 04/23/19 Unknown Urine Total Protein 5 mg/dL (5-11.8) 04/23/19 Unknown Medications & Allergies - Medications Allergies/Adverse Reactions: Allergies No Known Allergies Allergy (Verified 04/22/19 19:46) Home Medications: Home Medications Medication Instructions Recorded Confirmed Last Taken Type No Known Home Medications [No 04/23/19 04/23/19 Unknown History Reported Home Medications] Active Medications: Generic Name Dose Route Start Last Admin Trade Name Freq PRN Reason Stop Dose Admin Acetaminophen 650 mg 04/23/19 00:49 Tylenol PO Q4H PRN Pain MILD(1-3)/Fever >100.5/KEARNS Heparin Sodium (Porcine) 5,000 unit 04/23/19 06:00 04/25/19 05:21 Heparin SUB-Q Not Given Q8HR JOSH Sodium Chloride 1,000 mls @ 200 mls/hr 04/23/19 01:00 04/24/19 22:20 Nacl 0.9% 1000 Ml IV 125 mls/hr DIRECT JOSH Administration Sodium Chloride 1,000 mls @ 0 mls/hr 04/24/19 10:30 Nacl 0.9% 1000 Ml IV 04/25/19 10:31 ONCE JOSH As Directed Magnesium Hydroxide 30 ml 04/23/19 00:49 Milk Of Magnesia PO Q4H PRN Constipation Morphine Sulfate 2 mg 04/23/19 00:49 04/23/19 22:46 Morphine IV 2 mg Q4H PRN Administration Pain, Moderate (4-6) Ondansetron HCl 4 mg 04/23/19 09:22 04/24/19 15:44 Zofran IV 4 mg Q4H PRN Administration Nausea And Vomiting Sodium Chloride 10 ml 04/23/19 10:00 04/25/19 09:24 Sodium Chloride Flush Syringe 10 Ml IV 10 ml BID JOSH Administration Sodium Chloride 10 ml 04/23/19 00:49 Sodium Chloride Flush Syringe 10 Ml IV PRN PRN LINE FLUSH
[2019-04-25] MEDS ORDERED: SODIUM CHLORIDE 0.9% 1000 ML 1,000 ML IV SCH (10:15)
--- NOTE | 2019-04-25 10:44 | Anesthesia Day of Surgery ---
Anesthesia Day of Surgery - Day of Surgery Patient Examined: Yes Patient H&P Reviewed: Yes Patient is NPO: Yes
[2019-04-25] MEDS ORDERED: fentaNYL 100 MCG/2 ML INJ ONE (11:46)
[2019-04-25] MEDS ORDERED: propofoL 200 MG/20 ML VIAL IV ONE (11:46)
--- NOTE | 2019-04-25 12:12 | Operative Report ---
Operative Report Operative Report: DOS: 04/25/2019 SURGEON: Mich Whalen MD EGD with biopsy REPORT PREOPERATIVE DIAGNOSIS and POSTOPERATIVE DIAGNOSIS: Intractable nausea vomiting and abdominal pain ESTIMATED BLOOD LOSS: Minimal DESCRIPTION OF PROCEDURE: A high-resolution EGD scope was passed through the oropharynx, esophagus, stomach, and second portion of duodenum. The scope was carefully withdrawn. Retroflexion was performed in the stomach. At the end of the procedure, the scope was cleaned using normal technique. Vital signs monitor ed continuously throughout. SEDATION: Provided by Anesthesiology Services. COMPLICATIONS: None. FINDINGS: * Normal second portion of the duodenum * 2 ulcers in the duodenal bulb. First ulcer approximately 6 mm in diameter clean based nonbleeding. Second ulcer approximately 1 cm in diameter slightly excavated with erythema and edema no high risk stigmata seen. Biopsies obtained from the edges of the ulcer rule out dysplasia * Moderate to severe gastritis of the gastric antrum and body with multiple superficial erosions in the gastric antrum and nodularity and erythema of the gastric body. Biopsies were taken to rule out H. Pylori infection. A total of 5 biopsies were taken, 2 from the antrum, 1 from the incisura, 2 from the body. * GE junction located 38 cm from incisors * Minimal reflux esophagitis in the distal esophagus at the level of the GE junction * Remainder of the exam was normal RECOMMENDATIONS: * Follow-up biopsy results * Starting patient on IV twice daily Protonix as well as Carafate to treat the duodenal ulcer and gastric inflammation which is likely the source of her symptoms * I am starting her on a liquid diet diet once patient is tolerating diet she may advance as tolerated
[2019-04-25] MEDS ORDERED: SODIUM CHLORIDE 0.9% 1000 ML 2,000 ML IV ONE (13:00)
[2019-04-25] MEDS ORDERED: PANTOPRAZOLE 40 MG INJ IV SCH (13:00)
--- NOTE | 2019-04-25 13:16 | Post Anesthesia Evaluation ---
- Post Anesthesia Evaluation Patient Participated: Yes Airway Patent: Yes Stable Respiratory Function: Yes Nausea/Vomiting: No Temp > 96.8F: Yes Pain Manageable: Yes Adequeate Hydration: Yes Anesthesia Complications: No
--- NOTE | 2019-04-25 14:04 | Discharge Summary ---
Providers - Providers Date of Admission: 04/23/19 00:38 Attending physician: JORGE L FRIEDMAN MD 04/23/19 00:49 Consult to Physician [CONS] Routine Comment: Consulting Provider: SAM SÁNCHEZ Physician Instructions: Reason For Exam: ACUTE KIDNEY INJURY 04/23/19 09:23 Consult to Physician [CONS] Routine Comment: Consulting Provider: EMILY VILLASEÑOR Physician Instructions: Reason For Exam: persistent nausea with vomiting Primary care physician: [employer] Hospitalization Reason for admission: abdominal pain Condition: Stable Hospital course: 33 year old female seen in the ER c/o nausea and vomiting for three days. She has had some constipation .She denies any fever, no chills, no abdominal pain, no dysuria or hematuria. She states she ate some chicken at a restaurant few days ago and subsequently started having nausea and vomiting. She denies any sick contacts, no recent travels. Evaluation in the ER including CT abdomen did not reveal any significant abnormalities. BUN/Creatinine was however elevate 04/24: IV fluids adjusted yesterday creatinine only came down to 2.8 discussed with appliance tester recommended given a bolus of fluid and increasing to 200 cc an hour as patient is significantly dehydrated. Patient did have one episode of bowel movement yesterday. Awaiting GI evaluation and anticipate discharge in a.m. 224: Patient underwent endoscopy with the following findings FINDINGS: * Normal second portion of the duodenum * 2 ulcers in the duodenal bulb. First ulcer approximately 6 mm in diameter clean based nonbleeding. Second ulcer approximately 1 cm in diameter slightly excavated with erythema and edema no high risk stigmata seen. Biopsies obtained from the edges of the ulcer rule out dysplasia * Moderate to severe gastritis of the gastric antrum and body with multiple superficial erosions in the gastric antrum and nodularity and erythema of the gastric body. Biopsies were taken to rule out H. Pylori infection. A total of 5 biopsies were taken, 2 from the antrum, 1 from the incisura, 2 from the body. * GE junction located 38 cm from incisors * Minimal reflux esophagitis in the distal esophagus at the level of the GE junction * Remainder of the exam was normal RECOMMENDATIONS: * Follow-up biopsy results * Starting patient on IV twice daily Protonix as well as Carafate to treat the duodenal ulcer and gastric inflammation which is likely the source of her symptoms * I am starting her on a liquid diet diet once patient is tolerating diet she may advance as tolerated She currently is tolerating diet and can be discharged I did send all her medications to her pharmacy. I discussed with the patient the need to follow-up with GI for pathology report and in a timely manner. She verbalized understanding. She did not exhibit any symptomatic bradycardia repeat heart rate was in the 60s. EVY Secondary to vasomotor nephropathy Gastroenteritis severe Peptic ulcer disease Dehydration Abdominal pain- Epigastric-Etiology unknown Constipation Persistent Nausea and Vomiting Polysubstance abuse. Acute Metabolic Acidosis Sinus Bradycarda Tobacco and THC use disorder Disposition: DC-01 TO HOME OR SELFCARE Time spent for discharge: 35 mins Core Measure Documentation - Palliative Care Palliative Care/ Comfort Measures: Not Applicable - Core Measures Any of the following diagnoses?: none Exam - Physical Exam Narrative exam: VITAL SIGNS: Reviewed. GENERAL: The patient appears normally developed, Vital signs as documented. HEAD: No signs of head trauma. EYES: Pupils are equal. Extraocular motions intact. EARS: Hearing grossly intact. MOUTH: Oropharynx is normal. NECK: No adenopathy, no JVD. CHEST: Chest with clear breath sounds bilaterally. No wheezes, rales, or rhonchi. CARDIAC: Regular rate and rhythm. S1 and S2, without murmurs, gallops, or rubs. VASCULAR: No Edema. Peripheral pulses normal and equal in all extremities. ABDOMEN: Soft, epigastric tender. And non distended. No rebound or guarding, and no masses palpated. Bowel Sounds normal. MUSCULOSKELETAL: Good range of motion of all major joints. Extremities without clubbing, cyanosis or edema. NEUROLOGIC EXAM: Alert and oriented x 3 No focal sensory or strength deficits. Speech normal. Follows commands. PSYCHIATRIC: Mood normal. SKIN: Multiple tattoos. Detail exam as documented in skin assessment - Constitutional Vitals: Temp Pulse Resp BP Pulse Ox 98.9 F 49 L 13 141/77 100 04/25/19 12:13 04/25/19 12:43 04/25/19 12:43 04/25/19 12:43 04/25/19 12:43 Plan Activity: advance as tolerated, fall precautions Diet: advance as tolerated Special Instructions: record daily BP diary, smoking cessation Follow up with: PRIMARY MD SUMAYA [Primary Care Provider] - 3-5 Days ANA CRANDALL MD [Staff Physician] - 7 Days Prescriptions: Sucralfate [Carafate] 1 gm PO ACHS #100 ml Pantoprazole [Protonix TAB] 40 mg PO BID #60 tablet
[2019-04-25] MEDS ORDERED: SUCRALFATE 1 GM/10 ML ORAL LIQD PO SCH (16:30)
[2019-04-25 18:23] VITALS: BP 194/88
== END 2019-04-25 18:50 | disposition home or self-care (01) ==
LOC: ED 19:44 → 3A 04-23 00:38
PROVIDERS: ADMIT Internal Medicine Geriatric Medicine; ATTEND Internal Medicine
DX: N17.9 Acute kidney failure, unspecified (principal); K52.9 Noninfective gastroenteritis and colitis, unspecified; R11.2 Nausea with vomiting, unspecified; K59.00 Constipation, unspecified; I10 Essential (primary) hypertension; E86.0 Dehydration; M19.90 Unspecified osteoarthritis, unspecified site; F19.10 Other psychoactive substance abuse, uncomplicated; E87.2 Acidosis; F17.200 Nicotine dependence, unspecified, uncomplicated; Z79.899 Other long term (current) drug therapy
CPT/HCPCS: 36415; 43235; 71045; 74176; 76770; 80048; 80053; 80307; 81001; 82570; 83690; 83930; 84156; 84300; 84550; 84703; 85025; 85610; 85730; 88305; 88342; 96361; 96372; 96374; 96375; 96376; 99284; C9113; G0378; J1170; J1644; J2270; J2405; J2704; J3010; J7030; 80320; G0480

== ENCOUNTER 2020-04-09 15:03 | Emergency (ER) | payer MEDICAID ==
--- NOTE | 2020-04-09 16:46 | Emergency Department Report ---
ED Abdominal Pain HPI - General Chief Complaint: Abdominal Pain Stated Complaint: LOWER PAIN/BACK PAIN Time Seen by Provider: 04/09/20 16:02 Source: patient Mode of arrival: Ambulatory Limitations: No Limitations - History of Present Illness Initial Comments: pt is a 34 yo female who presents to the ED with c/o lower abd pain that began three days ago. She has associated dysuria and urinary frequency. she denies any n/v/d, fever, abnormal vaginal discharge, itching or burning, back pain. pt states she has been constipated, she is still tolerating PO intake and still can pass gas. she has not taken anything for constipation. no pmhx. no allergies to meds. [facility] 03/16/2020 - Related Data Previous Rx's Medication Instructions Recorded Last Taken Type Ondansetron [Zofran Odt] 4 mg PO Q6H #30 tab.rapdis 04/25/19 Unknown Rx Pantoprazole [Protonix TAB] 40 mg PO BID #60 tablet 04/25/19 Unknown Rx Sucralfate [Carafate] 1 gm PO ACHS #100 ml 04/25/19 Unknown Rx Acetaminophen/Codeine [Tylenol 1 tab PO Q6H PRN #10 tab 04/09/20 Unknown Rx /Codeine # 3 tab] Phenazopyridine [Pyridium] 100 mg PO TID #9 tab 04/09/20 Unknown Rx Promethazine [Phenergan] 25 mg PO Q8HR PRN #10 tab 04/09/20 Unknown Rx cephALEXin [Keflex] 500 mg PO BID 7 Days #14 cap 04/09/20 Unknown Rx Allergies Allergy/AdvReac Type Severity Reaction Status Date / Time No Known Allergies Allergy Verified 04/22/19 19:46 ED Review of Systems ROS: Stated complaint: LOWER PAIN/BACK PAIN Other details as noted in HPI Comment: All other systems reviewed and negative ED Past Medical Hx - Past Medical History Previous Medical History?: Yes Hx Hypertension: Yes Hx Congestive Heart Failure: No Hx Diabetes: No Hx Arthritis: Yes Hx Asthma: No Hx COPD: No Hx HIV: No - Surgical History Past Surgical History?: No - Social History Smoking Status: Current Every Day Smoker Substance Use Type: None - Medications Home Medications: Home Medications Medication Instructions Recorded Confirmed Last Taken Type Ondansetron [Zofran Odt] 4 mg PO Q6H #30 tab.rapdis 04/25/19 Unknown Rx Pantoprazole [Protonix TAB] 40 mg PO BID #60 tablet 04/25/19 Unknown Rx Sucralfate [Carafate] 1 gm PO ACHS #100 ml 04/25/19 Unknown Rx Acetaminophen/Codeine [Tylenol 1 tab PO Q6H PRN #10 tab 04/09/20 Unknown Rx /Codeine # 3 tab] Phenazopyridine [Pyridium] 100 mg PO TID #9 tab 04/09/20 Unknown Rx Promethazine [Phenergan] 25 mg PO Q8HR PRN #10 tab 04/09/20 Unknown Rx cephALEXin [Keflex] 500 mg PO BID 7 Days #14 cap 04/09/20 Unknown Rx ED Physical Exam - General Limitations: No Limitations General appearance: alert, in no apparent distress - Head Head exam: Present: atraumatic, normocephalic - Eye Eye exam: Present: normal appearance - ENT ENT exam: Present: mucous membranes moist - Respiratory Respiratory exam: Present: normal lung sounds bilaterally. Absent: respiratory distress, wheezes, rales, rhonchi, stridor, chest wall tenderness, accessory muscle use, decreased breath sounds, prolonged expiratory - Cardiovascular Cardiovascular Exam: Present: regular rate, normal rhythm, normal heart sounds. Absent: systolic murmur, diastolic murmur, rubs, gallop - GI/Abdominal GI/Abdominal exam: Present: soft, tenderness (generalized lower), normal bowel sounds. Absent: distended, guarding, rebound, rigid - Neurological Exam Neurological exam: Present: alert, oriented X3 - Psychiatric Psychiatric exam: Present: normal affect, normal mood - Skin Skin exam: Present: warm, dry, intact ED Course Vital Signs 04/09/20 04/09/20 15:38 18:40 Temperature 99.8 F H Pulse Rate 115 H 64 Respiratory 20 Rate Blood Pressure 121/62 Blood Pressure 118/60 [Left] O2 Sat by Pulse 99 Oximetry ED Medical Decision Making - Lab Data Lab Results 04/09/20 Range/Units 16:32 Urine Color Yellow (Yellow) Urine Turbidity Cloudy (Clear) Urine pH 6.0 (5.0-7.0) Ur Specific [place] 1.005 (1.003-1.030) Urine Protein <15 mg/dl (Negative) mg/dL Urine Glucose (UA) Neg (Negative) mg/dL Urine Ketones Neg (Negative) mg/dL Urine Blood Sm (Negative) Urine Nitrite Neg (Negative) Urine Bilirubin Neg (Negative) Urine Urobilinogen < 2.0 (<2.0) mg/dL Ur Leukocyte Esterase Lg (Negative) Urine WBC (Auto) > 182.0 H (0.0-6.0) /HPF Urine RBC (Auto) 5.0 (0.0-6.0) /HPF U Epithel Cells (Auto) 4.0 (0-13.0) /HPF Urine Bacteria (Auto) 2+ (Negative) /HPF Urine Yeast (Budding) 1+ /HPF Urine HCG, Qual Negative (Negative) Vital Signs 04/09/20 04/09/20 15:38 18:40 Temperature 99.8 F H Pulse Rate 115 H 64 Respiratory 20 Rate Blood Pressure 121/62 Blood Pressure 118/60 [Left] O2 Sat by Pulse 99 Oximetry - Medical Decision Making pt is a 34 yo female who presents to the ED with c/o lower abd pain that began three days ago. She has associated dysuria and urinary frequency. she denies any n/v/d, fever, abnormal vaginal discharge, itching or burning, back pain. pt states she has been constipated, she is still tolerating PO intake and still can pass gas. she has not taken anything for constipation. no pmhx. no allergies to meds. [facility] 03/16/2020. Initial vitals with mild low-grade temp and elevated heart rate which improved upon repeat. UA shows evidence of significant UTI.Patient's urine results came back with significant UTI, ordered for patient to have 1 g ceftriaxone, pain medication, nausea medication, called patient overhead in the ED and there was no answer, called number on patient's chart and it was her mother's number, advised the mother to please have patient return as soon as possible, mother verbalized understanding, she states that her daughter does not have a cell phone at this time. Patient has now returned to the emergency room for treatment. Patient given Petrona Mcgee, 1 g ceftriaxone IM while in the emergency department. She was feeling much better and ready to go home. She was tolerating p.o. intake without difficulty. Patient given prescription for Keflex, Pyridium, Tylenol with codeine, Phenergan. Advised patient please take medication as prescribed. increase your water intake. follow up with a primary care doctor and have your urine retested. return to the emergency room for any new or worsening symptoms. Critical care attestation.: If time is entered above; I have spent that time in minutes in the direct care of this critically ill patient, excluding procedure time. ED Disposition Clinical Impression: UTI (urinary tract infection) Qualifiers: Urinary tract infection type: site unspecified Hematuria presence: without hematuria Qualified Code(s): N39.0 - Urinary tract infection, site not specified Disposition: TO HOME OR SELFCARE Is pt being admited?: No Does the pt Need Aspirin: No Condition: Stable Instructions: Urinary Tract Infection, Adult, [id number], Abdominal Pain (ED) Additional Instructions: please take medication as prescribed. increase your water intake. follow up with a primary care doctor and have your urine retested. return to the emergency room for any new or worsening symptoms. Prescriptions: cephALEXin [Keflex] 500 mg PO BID 7 Days #14 cap Promethazine [Phenergan] 25 mg PO Q8HR PRN #10 tab PRN Reason: nausea/vomiting Phenazopyridine [Pyridium] 100 mg PO TID #9 tab Acetaminophen/Codeine [Tylenol /Codeine # 3 tab] 1 tab PO Q6H PRN #10 tab PRN Reason: Pain , Severe (7-10) Referrals: [facility] [Provider Group] - 2-3 Days SAMEERA JAQUEZ MD [Staff Physician] - 2-3 Days Time of Disposition: 17:40 Print Language: KOREAN
[2020-04-09 17:24] LABS: Bacteria,Urine 2+ /HPF (Negative); Bilirubin,Urine NEG (Negative); Blood,Urine SM (Negative); Color,Urine Yellow (Yellow); Protein,Urine <15 mg/dL mg/dL (Negative); Urobilinogen,Urine < 2.0 mg/dL (<2.0)
[2020-04-09 17:29] LABS: WBC,Urine > 182.0 /HPF (0.0-6.0)
[2020-04-09 17:31] LABS: HCG Qualitative,Urine Negative (Negative)
[2020-04-09] MEDS ORDERED: HYDROcodone/ACETAMINOPHEN 5-325 MG TAB PO ONE (17:38)
[2020-04-09] MEDS ORDERED: ONDANSETRON 4 MG ODT TAB PO ONE (17:38)
[2020-04-09] MEDS ORDERED: LIDOCAINE-MPF (1%) 10 MG/1 ML VIAL 5 ML INFILTRATI ONE (17:38)
[2020-04-09 18:41] VITALS: BP 118/60
== END 2020-04-09 18:45 | disposition home or self-care (01) ==
LOC: ED 15:03
DX: N39.0 Urinary tract infection, site not specified (principal); I10 Essential (primary) hypertension; M19.91 Primary osteoarthritis, unspecified site; F17.200 Nicotine dependence, unspecified, uncomplicated; Z79.899 Other long term (current) drug therapy
CPT/HCPCS: 81001; 81025; 87086; 96372; 99283; J0696; Q0162